=== PATIENT | female | born 1985 | race Hispanic/Latino ===

== ENCOUNTER 2019-04-21 15:31 | Outpatient (CLI) | payer OTHER ==
--- NOTE | 2019-04-21 16:11 | ULT ---
OB ULTRASOUND: 04/21/19 HISTORY: First trimester evaluation. Intraoperative contraceptive device threads lost. Real time imaging of the pelvis was obtained transabdominally. This shows an intrauterine gestational sac and pole. The heart rate is 165 beats per minute. A small crescentic change area of fluid is seen adjacent to the sac measuring approximately 2.2 x 1.1 cm suggestive of a small subchori onic bleed. The right ovary is normal in appearance. The left ovary is not visualized. DOPPLER EAVLUATION WITH SPECTRAL ANALYSIS: Normal flow is shown to the right ovary. The crown to rump length measurements were 3.3 cm corresponding to 10 weeks, 2 days. Gestational sac measurements of 4.1 cm corresponds to 9 weeks, 6 days. IMPRESSION: 1. Viable intrauterine . Measurements corresponding to gestational age of 10 weeks, 1 d ay. Estimated date of delivery 11/16/19. 2. Small subchorionic bleed. POS: OFF
== END 2019-04-21 15:32 | disposition home or self-care (01) ==
LOC: BICULT 15:31
DX: T83.32XA Displacement of intrauterine contraceptive device, initial encounter (principal); O20.8 Other hemorrhage in early pregnancy; Z3A.10 10 weeks gestation of pregnancy
CPT/HCPCS: 76856; 93976

== ENCOUNTER 2019-06-30 10:22 | Outpatient (CLI) | payer OTHER ==
--- NOTE | 2019-06-30 11:54 | ULT ---
OB ULTRASOUND: Date: 06/30/19 HISTORY: Size and dates. anatomy. FINDINGS: Real-time imaging of the pelvis shows a single, viable intrauterine in cephalic presentatio n. The placenta is anterior in location. No signs of previa. Cervical canal length is 3.3 cm. Small p lacental frankel is incidentally noted. The amniotic fluid is adequate for this stage of . The amniotic fluid index is calculated at 11.7. The heart rate is 139 beats/minute. measurements are as follows: BPD: 4.8 cm 20 weeks/4 days HC: 18.2 cm, 20 weeks/5 days AC: 15.6 cm, 20 weeks/6 days FL: 3.6 cm, 21 weeks/4 days Review of anatomy shows normal head, cerebellum, ventricles, 4 chamber heart, stomach, kidneys, spine, bladder, cord insertion, and 3 vessel cord. No anomalies detected. IMPRESSION: 1. Single, viable intrauterine in a cephalic presentation. Overall measurements correspond ing to a gestational age of 21 weeks/0 days. Estimated date of delivery is 11/10/2019. 2. Placenta which is anterior in location and without evidence of previa. POS: TPC
== END 2019-06-30 10:23 | disposition home or self-care (01) ==
LOC: BICULT 10:22
PROVIDERS: ATTEND Family Medicine
DX: Z34.82 Encounter for supervision of other normal pregnancy, second trimester (principal); Z3A.21 21 weeks gestation of pregnancy
CPT/HCPCS: 76805

== ENCOUNTER 2019-11-05 14:41 | Day surgery (SDC) | payer OTHER ==
[2019-11-05 15:26] VITALS: BP 117/62; TEMP 98.8; BMI 30.4
[2019-11-05] MEDS ORDERED: hydrALAZINE 20 MG/ML VIAL SLOW IVP PRN (15:41)
--- NOTE | 2019-11-05 15:43 | PDOC.FPROB ---
FMR OB H&P: HPI - History of Present Illness Chief Complaint: ctx Indentification: 34 y/o @ 38.5 WGA History of Present Illness: Pt presents for ctx that started last night and have been on and off. She reports last night they were every 2 minutes, but then they stopped and then started back up this afternoon and have been every 8 minutes. Reports they are 4 /10 in pain scale. Denies LOF, vaginal bleeding. Endorses movement. Primary Care Physician: Dr. Braun FMR OB H&P: Current - Care : 3 Para: 2001 Gestational age: 38.5 FMR OB H&P: History - Past Medical History PMH: None - OB History OB History: 2 uncomplicated term 's - Surgical History Sx History: Denies - Social History Social History: Denies tobacco, EtOH, drug use - Family History Family History: Denies FMR OB H&P: Medications - Current Home Medications: Medication Instructions Recorded Confirmed Type No.137/Iron/Folic Acd 1 tablet PO DAILY 04/02/16 11/05/19 History [ Tablet] Allergies/Adverse Reactions: Allergies Allergy/AdvReac Type Severity Reaction Status Date / Time No Known Allergies Allergy Verified 11/05/19 15:21 FMR OB H&P: ROS - Review of Systems General: denies: fever/chills, weight/appetite/sleep changes Eyes: denies: vision changes, double vision ENT: denies: nasal congestion, rhinorrhea Cardiovascular: denies: chest pain, edema Respiratory: denies: cough, shortness of breath Gastrointestinal: denies: abdominal pain, vomiting Genitourinary (Female): reports: contractions. denies: incontinence, vaginal bleeding Musculoskeletal: denies: pain, swelling Neurologic: denies: numbness, weakness Integumentary: denies: itching, rash Psychological: denies: depression, anxiety FMR OB H&P: Vital Signs - Maternal Vital signs: Vital Signs - First Documented Temp Pulse Resp BP 98.8 F 68 18 117/62 11/05/19 15:21 11/05/19 15:21 11/05/19 15:21 11/05/19 15:21 - Heart Tones Baseline: 140 Variability: moderate Acceleration: present Deceleration: absent Category: category 1 Smock contractions every: q8-10 min FMR OB H&P: Physical Exam - Physical Exam General: NAD, awake, alert and oriented HEENT: MMM, conjunctiva clear, grossly normal vision, grossly normal hearing Neck: supple, no LAD Heart: RRR, normal S1/S2, no murmurs/rubs/gallops, pulses present, no edema General: CTAB, no respiratory distress, good air movement, no rales/rhonchi, no wheezing Abdomen: soft, gravid, non-tender Musculoskeletal: normal gait and station, pulses present Neurological: no focal deficit Skin: good tugor, capillary refill <2 seconds Lymphatic: no unusual bruising or bleeding, no purpura Psychiatric: intact recent and remote memory, good judgement and insight - Pelvic Exam SVE: , unchanged from office visit yesterday Presentation: vertex FMR OB H&P: A/P - Problem List (1) Uterine contractions during Current Visit: Yes Status: Acute Code(s): O62.2 - OTHER UTERINE INERTIA Assessment and Plan: Suspect early latent labor vs [place] contractions Gave option of walking for 2 hours with recheck vs go home and f/u if ctx worsen , pt desired to go home and f/u if ctx worsen -Continue routine f/u -Gave labor precautions Disposition: d/c home and f/u with Dr. Braun Discussion: Date/Time: 11/05/19 2650 This H&P was discussed with Dr. Bose who agrees with the above documentation and plan. Signature: Yaquelin Hardin MD, PGY-3
== END 2019-11-05 16:10 | disposition home or self-care (01) ==
LOC: L&D/OP 14:41
PROVIDERS: ATTEND Family Medicine
DX: O47.1 False labor at or after 37 completed weeks of gestation (principal); Z3A.38 38 weeks gestation of pregnancy

== ENCOUNTER 2019-11-08 05:31 | Day surgery (SDC) | payer OTHER, SELFPAY ==
[2019-11-08 06:01] VITALS: BP 120/73; TEMP 98.6; BMI 29.4
[2019-11-08] MEDS ORDERED: hydrALAZINE 20 MG/ML VIAL SLOW IVP PRN (06:22)
[2019-11-08 06:43] LABS: Bacteria/HPF None Seen HPF (None Seen); Bilirubin Negative (Negative); Blood, Urine Negative (Negative); Clarity Clear (Clear); Glucose, Urine (Dipstick) Normal (Negative); Leukocyte Negative Leu/uL (Negative); Nitrite Negative (Negative); Protein, Urine (Dipstick) Negative (Neg-Trace); RBC/HPF 0-3 HPF (0-3); Squamous Epithelial 0-3 HPF (0-3); Urobilinogen Normal mg/dL (Less than 2); WBC/HPF 0-3 HPF (0-3)
--- NOTE | 2019-11-08 07:17 | PRG ---
DATE OF SERVICE: 11/08/2019 PRIMARY OB: Dr. Rafita Braun. CHIEF COMPLAINT: Abdominal pains. HISTORY OF PRESENT ILLNESS: The patient is a 34-year-old G3, P2 female with an intrauterine at 39 weeks gestation, here for abdominal pains that have worsened overnight. She reports that she has been unable to sleep all night long because of the contractions. She says they are about 6 to 7 minutes apart. She has been having some mucousy discharge and a lot of pressure. She also reports a lot of frequency. The patient was seen in the office last week and was noted to be 3 cm dilated. The patient denies fever, cough, headache, chest pain, shortness of breath, nausea, vomiting, diarrhea, constipation, hip problems, knee problems, or muscle weakness. She denies any new rashes. Again, reports this mucousy discharge without bleeding, urinary urgency, and frequency. PAST MEDICAL HISTORY: Depression and anemia. PAST SURGICAL HISTORY: Negative. ALLERGIES: NO KNOWN DRUG ALLERGIES. MEDICATIONS: vitamins. SOCIAL HISTORY: Denies drug, alcohol, or tobacco use. OB LABS: Blood type is B positive. Antibody screen is negative. Group B Strep is negative. She is rubella immune. HIV is negative. Hepatitis B surface antigen is negative. RPR is negative. REVIEW OF SYSTEMS: Per HPI. PHYSICAL EXAMINATION: VITAL SIGNS: Blood pressure is 120/73, heart rate of 64, respiratory rate of 18 , temperature 98.6. GENERAL: She appears to be in no acute distress. She is alert, oriented, cooperative, and pleasant to interact with. HEAD: Normocephalic and atraumatic. LUNGS: Clear to auscultation bilaterally. HEART: Has a regular rate and rhythm. ABDOMEN: Gravid, soft, nontender. EXTREMITIES: Nontender and nonedematous. CERVIX: Per nursing staff is 3, 25, -3 station, unchanged from 3 days ago. heart tracing shows the fetus with a baseline in the 130s with moderate long-term variability. She has not had any 15 x 15 accelerations as of yet. Tocometer showing contractions about every 7 minutes, lasting about a minute. ASSESSMENT AND PLAN: The patient is a 34-year-old female, multiparous with intrauterine at 39 weeks, presents for evaluation of labor. The patient is having contractions fairly regularly, though not closely spaced. Fetus has a category 1 tracing, though not reactive at this time. She will be rechecked in the next couple of hours and we will continue to monitor the baby. Should the baby not get reactive, we will contact Dr. Braun about consideration of induction of labor a day early as she is scheduled for tomorrow. Otherwise, the patient will be discharged home if the baby has reactive tracing. Addendum Pt had no cervical change on reevaluation and was discharged home with term labor precautions Job ID: [id number] [facility]
== END 2019-11-08 08:15 | disposition home or self-care (01) ==
LOC: L&D/OP 05:31
PROVIDERS: ATTEND Family Medicine
DX: O47.1 False labor at or after 37 completed weeks of gestation (principal); Z3A.39 39 weeks gestation of pregnancy
CPT/HCPCS: 81001; 87480; 87510; 87660; 99284

== ENCOUNTER 2019-11-09 18:03 | Inpatient (IN) | payer MEDICAID, OTHER, SELFPAY ==
[~2019-11-09 18:03] MED LIST: Bupivacaine/Epinephrine 0.25% 30 ML VIAL ONE; EPHEDRINE 25 MG/5 ML SYRINGE ONE
[2019-11-09 18:17] VITALS: BMI 31.3
[2019-11-09] MEDS ORDERED: Diphenoxylate HCl/Atropine Tablet PO PRN (21:32)
[2019-11-09] MEDS ORDERED: HYDROcodone/Acetaminophen 5/325 mg Tablet PO PRN (21:32)
[2019-11-09] MEDS ORDERED: Ondansetron PF 4 MG/2 ML Vial IVP PRN (21:32)
[2019-11-09] MEDS ORDERED: Lidocaine 1% (PF) 30 ML VIAL SC PRN (21:32)
[2019-11-09] MEDS ORDERED: Methylergonovine 0.2 MG/ML VIAL IM PRN (21:32)
[2019-11-09] MEDS ORDERED: Butorphanol Tartrate 1 MG/ML VIAL SLOW IVP PRN (21:32)
[2019-11-09] MEDS ORDERED: Ibuprofen 800 MG TAB PO PRN (21:32)
[2019-11-09] MEDS ORDERED: hydrALAZINE 20 MG/ML VIAL SLOW IVP PRN (21:32)
[2019-11-09] MEDS ORDERED: Promethazine HCl 25 MG/ML VIAL IM PRN (21:32)
[2019-11-09] MEDS ORDERED: Misoprostol 200 MCG TAB PR PRN (21:32)
[2019-11-09] MEDS ORDERED: Carboprost 250 MCG/ML AMP IM PRN (21:32)
[2019-11-09 21:41] LABS: Hemoglobin 10.9 g/dL (12.0-16.0); Mean Corpuscular Hemoglobin 30.8 pg (27.0-31.0); Mean Corpuscular Volume 93.4 fL (78.0-98.0); Mean Platelet Volume 11.7 fL (7.4-10.4); Platelet Count 172 thou/uL (130-400); RBC Distribution Width 13.2 % (11.5-14.5); Red Blood Cell (RBC) Count 3.55 mill/uL (4.20-5.40); White Blood Cell (WBC) Count 8.1 thou/uL (4.8-10.8)
[2019-11-09] MEDS ORDERED: NS w/ Oxytocin 10 units 500 ML IV SCH ×2 (21:45)
[2019-11-09] MEDS: Lactated Ringer's 1,000 ML IV SCH (22:00)
[2019-11-09 22:09] LABS: Syphilis Antibody Nonreactive (Nonreactive); Syphilis Antibody Index 0.04 S/CO (<1.00 Non-Reactive)
[2019-11-09 22:10] LABS: HBSAg Index 0.51 S/CO (0-0.99); Hep B Surf Ag Non-Reactive S/CO (NonReactive)
[2019-11-10] MEDS: Misoprostol 100 MCG TAB PO SCH ×2 (00:42→04:31)
[2019-11-10] MEDS ORDERED: Fentanyl 4 mcg/Bup 0.1% Cadd 100 ML ONE (06:10)
[2019-11-10] MEDS: Lactated Ringer's 1,000 ML IV SCH ×2 (06:48→09:19)
[2019-11-10] MEDS ORDERED: Promethazine HCl 25 MG/ML VIAL IM PRN (06:51)
[2019-11-10] MEDS ORDERED: Acetaminophen 325 MG TAB PO PRN (06:51)
[2019-11-10] MEDS ORDERED: Lactated Ringer's 500 ML IV PRN (06:51)
[2019-11-10] MEDS ORDERED: Ondansetron PF 4 MG/2 ML Vial IVP PRN ×2 (06:51→14:26)
[2019-11-10] MEDS ORDERED: diphenhydrAMINE 50 MG/ML VIAL IVP PRN (06:51)
[2019-11-10] MEDS ORDERED: Naloxone HCl 0.4 mg/ml Vial IVP PRN ×2 (06:51)
[2019-11-10] MEDS ORDERED: EPHEDRINE 25 MG/5 ML SYRINGE SLOW IVP PRN (06:51)
[2019-11-10] MEDS ORDERED: Communication Order-Pharmacy FS SCH (07:00)
[2019-11-10] MEDS ORDERED: Fentanyl 4 mcg/Bupivacaine 0.1% Cassette 100 ML EPIDURAL SCH (07:00)
[2019-11-10] MEDS: NS / Oxytocin 40 units/1000ml 1,000 ML IV PRN ×2 (12:05→14:32)
[2019-11-10] MEDS ORDERED: HYDROcodone/Acetaminophen 5/325 mg Tablet PO PRN ×2 (14:26)
[2019-11-10] MEDS ORDERED: Lanolin Ointment 7 GM TUBE TOP PRN (14:26)
[2019-11-10] MEDS ORDERED: diphenhydrAMINE 25 MG CAP PO PRN (14:26)
[2019-11-10] MEDS ORDERED: Milk Of Magnesia 30 ML UDCUP PO PRN (14:26)
[2019-11-10] MEDS ORDERED: hydrALAZINE 20 MG/ML VIAL SLOW IVP PRN (14:26)
[2019-11-10] MEDS ORDERED: Benzocaine-Menthol 82.5 ML CAN TOP PRN (14:26)
[2019-11-10] MEDS ORDERED: NS / Oxytocin 40 units/1000ml 1,000 ML IV SCH (14:26)
[2019-11-10] MEDS ORDERED: Bisacodyl 10 MG SUPP PR PRN (14:26)
[2019-11-10] MEDS: Ibuprofen 800 MG TAB PO SCH ×2 (14:32→22:27)
[2019-11-10] MEDS: Ferrous Sulfate 325 MG TAB PO SCH (19:20)
[2019-11-10] MEDS: Docusate Calcium (SURFAK) 240 MG CAP PO SCH (22:27)
[2019-11-11 06:12] LABS: Hemoglobin 10.6 g/dL (12.0-16.0); Mean Corpuscular HGB CONC 33.1 g/dL (32.0-36.0); Mean Corpuscular Hemoglobin 31.3 pg (27.0-31.0); Mean Corpuscular Volume 94.6 fL (78.0-98.0); Mean Platelet Volume 11.1 fL (7.4-10.4); Platelet Count 149 thou/uL (130-400); RBC Distribution Width 13.1 % (11.5-14.5); Red Blood Cell (RBC) Count 3.39 mill/uL (4.20-5.40); White Blood Cell (WBC) Count 8.8 thou/uL (4.8-10.8)
[2019-11-11] MEDS: Ibuprofen 800 MG TAB PO SCH ×2 (06:17→14:51)
[2019-11-11] MEDS ORDERED: Prenatal Vitamin 1 TAB PO SCH (09:00)
[2019-11-11] MEDS ORDERED: Adacel (T-DAP) 0.5 ML SYRINGE IM ONE (09:00)
[2019-11-11] MEDS: Docusate Calcium (SURFAK) 240 MG CAP PO SCH (09:53)
[2019-11-11] MEDS: Ferrous Sulfate 325 MG TAB PO SCH (09:54)
[2019-11-11 11:32] VITALS: BP 104/61; TEMP 98.8
--- NOTE | 2019-11-12 14:22 | DN ---
DATE OF PROCEDURE: 11/10/2019 PREOPERATIVE DIAGNOSIS: Term intrauterine . POSTOPERATIVE DIAGNOSES: Term intrauterine . PROCEDURE PERFORMED: Spontaneous vaginal delivery. DESCRIPTION OF PROCEDURE: I was present for delivery of this 34-year-old female, G3, P2, now P3 of a viable male infant on 11/10/2019. The delivered in OA presentation over an intact perineum. No nuchal cord was encountered. Delivery was uneventful and uncomplicated. Delayed cord clamping was performed and the infant was then placed on the maternal chest. Placenta delivered spontaneously intact. Three-vessel cord was noted. No lacerations were seen. ESTIMATED BLOOD LOSS: 75 mL. Job ID: [id number]
== END 2019-11-11 16:06 | disposition home or self-care (01) | DRG 807 ==
LOC: L&D 18:03 → 3SE 11-10 17:37
PROVIDERS: ADMIT Family Medicine; ATTEND Family Medicine
PROC: 10E0XZZ Delivery of Products of Conception, External Approach (ICD-10-PCS; principal; 2019-11-10)
PROC: 10907ZC Drainage of Amniotic Fluid, Therapeutic from Products of Conception, Via Natural or Artificial Opening (ICD-10-PCS; 2019-11-10)
DX: O99.02 Anemia complicating childbirth (principal); Z37.0 Single live birth; D64.9 Anemia, unspecified; Z3A.39 39 weeks gestation of pregnancy
CPT/HCPCS: 36415; 51702; 81001; 85027; 86780; 86850; 86900; 86901; 87340; 87480; 87510; 87660; 99284; J2590

== ENCOUNTER 2023-08-16 12:46 | Emergency (ER) | payer SELFPAY ==
[2023-08-16] MEDS ORDERED: Lidocaine 1% PF 5 ML VIAL ONE (14:39)
[2023-08-16] MEDS ORDERED: Boostrix 0.5 ML (Tdap) VIAL (>/=7 yrs of age) ONE (14:57)
[2023-08-16] MEDS ORDERED: Bacitracin 1 PK ONE (15:24)
== END 2023-08-16 15:35 | disposition home or self-care (01) ==
LOC: ERS 12:46
DX: S61.011A Laceration without foreign body of right thumb without damage to nail, initial encounter (principal); W23.0XXA Caught, crushed, jammed, or pinched between moving objects, initial encounter; Z23 Encounter for immunization
CPT/HCPCS: 12001; 90471; 90715

== ENCOUNTER 2024-04-17 15:49 | Outpatient (CLI) | payer OTHER | END 2024-04-17 15:50 | disposition home or self-care (01) | LOC: BICULT 15:49 | PROVIDERS: ATTEND Student in an Organized Health Care Education/Training Program | DX: N94.10 Unspecified dyspareunia (principal) | CPT/HCPCS: 76856 ==